=== PATIENT | female | born 1995 | race Caucasian/White ===

== ENCOUNTER 2018-05-13 08:12 | Inpatient (IN) ==
[2018-05-13 08:53] LABS: Baso # (Auto) 0.1 th/mm3 (0.0-0.2); Eos # (Auto) 0.4 th/mm3 (0.0-0.4); Eos % (Auto) 3.6 % (0.0-4.0); Hematocrit 42.6 % (35.0-46.0); Hemoglobin 14.3 gm/dL (11.6-15.3); Lymph # (Auto) 4.1 th/mm3 (1.0-4.8); Lymph % (Auto) 40.5 % (9.0-44.0); Mean Corpuscular HGB Conc 33.5 % (32.0-36.0); Mean Corpuscular Hemoglobin 30.3 pg (27.0-34.0); Mean Corpuscular Volume 90.4 fL (80.0-100.0); Mean Platelet Volume 7.5 fL (7.0-11.0); Mono # (Auto) 0.5 th/mm3 (0.0-0.9); Mono % (Auto) 4.9 % (0.0-8.0); Neut # (Auto) 5.1 th/mm3 (1.8-7.7); Platelet Count 247 th/mm3 (150-450); Red Blood Count 4.71 mil/mm3 (4.00-5.30); Red Cell Distribution Width 14.3 % (11.6-17.2); White Blood Count 10.1 th/mm3 (4.0-11.0)
[2018-05-13] MEDS ORDERED: Lidocaine 1% Inj 50 ML Vial INFILTRATN ONE (09:07)
[2018-05-13 09:12] LABS: Alanine Aminotransferase 37 U/L (10-53)
[2018-05-13 09:20] LABS: Alkaline Phosphatase 121 U/L (45-117); Total Protein 7.7 g/dL (6.4-8.2)
[2018-05-13 09:23] LABS: Anion Gap 13 meq/L (5-15); Aspartate Aminotransferase 51 U/L (15-37); Blood Urea Nitrogen 4 mg/dL (7-18); Calcium 8.4 mg/dL (8.5-10.1); Carbon Dioxide 20.6 meq/L (21.0-32.0); Chloride 103 meq/L (98-107); Glomerular Filtration Rate Greater Than 89 mL/min (>89); Glucose,Random 103 mg/dL (74-106); Magnesium 2.2 mg/dL (1.5-2.5); Potassium 3.7 meq/L (3.5-5.1); Sodium 137 meq/L (136-145)
[2018-05-13 09:24] LABS: Alcohol 139 mg/dL (0-5)
--- NOTE | 2018-05-13 10:36 | ED ---
HPI General Chief Complaint: Psychiatric Symptoms Stated Complaint: Psych eval / DBPD Time Seen by Provider: 05/13/18 08:37 Source: patient Mode of arrival: ambulatory Limitations: no limitations History of Present Illness HPI Narrative: 23-year-old female presents to the emergency department under Aranda act. According to the report the patient has prior history of Aranda acts and she is a chronic cutter and has previously gotten treatment for it. She intentionally cut herself on her right thigh causing an approximate 5 inch laceration. She also made a statement to a friend prior to cutting herself that she was going to take medication to harm herself. My examination the patient states "all of this is bulging it." She says that all this is a light. She reports cutting her right thigh this morning after a phone call she received that upset her, but she "did not mean to do it." Says she did it because it "takes away from emotional pain." She has history of self cutting. Says she has been almost 3 years without cutting. She denies suicidal or homicidal ideations. Denies suicidal plan. Denies auditory visual hallucinations. Reports marijuana use. Reports occasional alcohol use. Reports tobacco use. Up-to-date on tetanus vaccination. Symptoms are moderate to severe in severity. No known aggravating or relieving factors. No treatments tried. Onset unknown. Duration most likely chronic. Primary CARE providers Dr. Jackson. No psychiatrist. Allergies to prednisone. History of PCOS and hypothyroidism. History of depression. Has no other medical complaints. No other modifying factors or associated signs and symptoms. Related Data Previous Rx's Medication Instructions Recorded folic acid 1 mg PO DAILY #30 tab 05/14/18 thiamine HCl (vitamin B1) [Vitamin 100 mg PO DAILY #30 tab 05/14/18 B-1] Allergies Allergy/AdvReac Type Severity Reaction Status Date / Time No Known Allergies Uncoded 06/20/10 10:15 Review of Systems ROS: all other systems reviewed are negative PMFSH Family History Family History Mother Alcohol abuse Father Mood disorder Social History Social History Substance History: Active Abuse Second Hand Smoke Exposure: No Smoking Status: Current every day smoker Tobacco Type: Cigarettes How Often Do You Have a Drink Containing Alcohol: Monthly or less Immunization History Tetanus Immunization: <5 Years Exam Narrative Exam Narrative: GENERAL: Well-nourished, well-developed female patient , in no acute distress; tearful, upset SKIN: Warm and dry. Right lateral proximal thigh with approximately 10 cm laceration; bleeding controlled. Right lower extremity is supple and non-tense with 2+ pedal pulse and sensory intact and without erythema or edema. HEAD: Atraumatic. Normocephalic. EYES: Pupils equal and round. ENT: Mucosa pink and moist. NECK: Supple. Trachea midline. CARDIOVASCULAR: Regular rate and rhythm. No murmur appreciated. RESPIRATORY: No accessory muscle use. Clear to auscultation. Breath sounds equal bilaterally. GASTROINTESTINAL: Abdomen soft, non-tender, nondistended. Hepatic and splenic margins not palpable. Bowel sounds are active 4 quadrants. MUSCULOSKELETAL: No obvious deformities. No clubbing. No cyanosis. No edema. NEUROLOGICAL: Awake and alert. Oriented 3. No obvious cranial nerve deficits. Motor grossly within normal limits. Normal speech. Moves all extremities. 5/5 strength to all extremities. PSYCHIATRIC: No delusional thought processes. No hallucinations. Procedures Laceration Laceration 1: Site: lower extremity (right proximal lateral thigh) Side (If applicable): right Size (cm): 10 Description: linear Depth: simple, single layer Anesthetic used: lidocaine 1% Anesthesia technique:: local infiltration Amount (mL): 6 Pre-repair:: wound explored and irrigated extensively Skin layer closed with: doug Number of sutures:: 13 Course Initial Documented Vital Signs Temperature 98.1 F 05/13/18 08:25 Pulse Rate 121 H 05/13/18 08:25 Respiratory Rate 22 05/13/18 08:25 Blood Pressure 142/92 H 05/13/18 08:25 Pulse Oximetry 100 05/13/18 08:25 Last Documented Vital Signs Temperature 97.6 F 05/14/18 06:11 Pulse Rate 72 05/14/18 06:11 Respiratory Rate 18 05/14/18 06:11 Blood Pressure 102/57 L 05/14/18 06:11 Pulse Oximetry 97 05/14/18 06:[address] [facility] Narrative Medical decision making narrative: Patient presents under a Aranda act. Physical examination and vital signs are essentially unremarkable. Patient has 10 cm laceration to her right lateral thigh. See my procedure note for laceration repair. Psych screen has been ordered. If the laboratory results are unremarkable, the patient will be medically cleared for psychiatric evaluation and disposition. Medical Screen Exam Complete: Yes Emergency Medical Condition: Yes Differential Diagnosis Differential Diagnosis: Laceration, self cutting, suicidal ideation, depression , medical clearance for psychiatric evaluation Lab Data Result diagrams: 05/13/18 08:29 05/14/18 05:22 Lab Results 05/13/18 05/13/18 05/13/18 Range/Units 08:29 08:29 08:29 WBC 10.1 (4.0-11.0) th/mm3 RBC 4.71 (4.00-5.30) mil/mm3 Hgb 14.3 (11.6-15.3) gm/dL Hct 42.6 (35.0-46.0) % MCV 90.4 (80.0-100.0) fL MCH 30.3 (27.0-34.0) pg MCHC 33.5 (32.0-36.0) % RDW 14.3 (11.6-17.2) % Plt Count 247 (150-450) th/mm3 MPV 7.5 (7.0-11.0) fL Neut % (Auto) 50.0 (16.0-70.0) % Lymph % (Auto) 40.5 (9.0-44.0) % [place] % (Auto) 4.9 (0.0-8.0) % Eos % (Auto) 3.6 (0.0-4.0) % Baso % (Auto) 1.0 (0.0-2.0) % Neut # (Auto) 5.1 (1.8-7.7) th/mm3 Lymph # (Auto) 4.1 (1.0-4.8) th/mm3 [place] # (Auto) 0.5 (0.0-0.9) th/mm3 Eos # (Auto) 0.4 (0.0-0.4) th/mm3 Baso # (Auto) 0.1 (0.0-0.2) th/mm3 WBC Differential . Differential Comment Auto diff final Sodium 137 (136-145) meq/L Potassium 3.7 (3.5-5.1) meq/L Chloride 103 (98-107) meq/L Carbon Dioxide 20.6 L (21.0-32.0) meq/L Anion Gap 13 (5-15) meq/L BUN 4 L (7-18) mg/dL Creatinine 0.76 (0.50-1.00) mg/dL Estimated GFR Greater than 89 (>89) mL/min Random Glucose 103 (74-106) mg/dL Hemoglobin A1c (4.3-6.0) % Calcium 8.4 L (8.5-10.1) mg/dL Magnesium 2.2 (1.5-2.5) mg/dL Total Bilirubin 0.4 (0.2-1.0) mg/dL AST 51 H (15-37) U/L ALT 37 (10-53) U/L Alkaline Phosphatase 121 H (45-117) U/L Total Protein 7.7 (6.4-8.2) g/dL Albumin 4.0 (3.4-5.0) g/dL Triglycerides (42-150) mg/dL Cholesterol (120-200) mg/dL LDL Cholesterol, Calc (0-99) mg/dL HDL Cholesterol (40.0-60.0) mg/dL Cholesterol/HDL Ratio Ratio TSH 3.550 (0.358-3.740) uIU/mL Beta HCG, Quant (0-5) mIU/mL Salicylates Less than 1.7 L (2.8-20.0) mg/dL Urine Opiates Screen (Neg) Acetaminophen Less than 2.0 L (10.0-30.0) mcg/mL Ur Barbiturates Screen (Neg) Ur Amphetamines Screen (Neg) U Benzodiazepines Scrn (Neg) Urine Cocaine Screen (Neg) U Cannabinoids Screen (Neg) Serum Alcohol 139 H (0-5) mg/dL 05/13/18 05/14/18 05/14/18 Range/Units 15:36 05:22 05:22 WBC (4.0-11.0) th/mm3 RBC (4.00-5.30) mil/mm3 Hgb (11.6-15.3) gm/dL Hct (35.0-46.0) % MCV (80.0-100.0) fL MCH (27.0-34.0) pg MCHC (32.0-36.0) % RDW (11.6-17.2) % Plt Count (150-450) th/mm3 MPV (7.0-11.0) fL Neut % (Auto) (16.0-70.0) % Lymph % (Auto) (9.0-44.0) % [place] % (Auto) (0.0-8.0) % Eos % (Auto) (0.0-4.0) % Baso % (Auto) (0.0-2.0) % Neut # (Auto) (1.8-7.7) th/mm3 Lymph # (Auto) (1.0-4.8) th/mm3 [place] # (Auto) (0.0-0.9) th/mm3 Eos # (Auto) (0.0-0.4) th/mm3 Baso # (Auto) (0.0-0.2) th/mm3 WBC Differential Differential Comment Sodium 142 (136-145) meq/L Potassium 3.7 (3.5-5.1) meq/L Chloride 106 (98-107) meq/L Carbon Dioxide 27.9 (21.0-32.0) meq/L Anion Gap 8 (5-15) meq/L BUN 8 (7-18) mg/dL Creatinine 0.65 (0.50-1.00) mg/dL Estimated GFR Greater than 89 (>89) mL/min Random Glucose 91 (74-106) mg/dL Hemoglobin A1c 5.4 (4.3-6.0) % Calcium 8.3 L (8.5-10.1) mg/dL Magnesium (1.5-2.5) mg/dL Total Bilirubin (0.2-1.0) mg/dL AST (15-37) U/L ALT (10-53) U/L Alkaline Phosphatase (45-117) U/L Total Protein (6.4-8.2) g/dL Albumin (3.4-5.0) g/dL Triglycerides 120 (42-150) mg/dL Cholesterol 140 (120-200) mg/dL LDL Cholesterol, Calc 67 (0-99) mg/dL HDL Cholesterol 49.4 (40.0-60.0) mg/dL Cholesterol/HDL Ratio 2.83 Ratio TSH (0.358-3.740) uIU/mL Beta HCG, Quant (0-5) mIU/mL Salicylates (2.8-20.0) mg/dL Urine Opiates Screen Neg (Neg) Acetaminophen (10.0-30.0) mcg/mL Ur Barbiturates Screen Neg (Neg) Ur Amphetamines Screen Neg (Neg) U Benzodiazepines Scrn Pos H (Neg) Urine Cocaine Screen Neg (Neg) U Cannabinoids Screen Pos H (Neg) Serum Alcohol (0-5) mg/dL 05/14/18 Range/Units 05:22 WBC (4.0-11.0) th/mm3 RBC (4.00-5.30) mil/mm3 Hgb (11.6-15.3) gm/dL Hct (35.0-46.0) % MCV (80.0-100.0) fL MCH (27.0-34.0) pg MCHC (32.0-36.0) % RDW (11.6-17.2) % Plt Count (150-450) th/mm3 MPV (7.0-11.0) fL Neut % (Auto) (16.0-70.0) % Lymph % (Auto) (9.0-44.0) % [place] % (Auto) (0.0-8.0) % Eos % (Auto) (0.0-4.0) % Baso % (Auto) (0.0-2.0) % Neut # (Auto) (1.8-7.7) th/mm3 Lymph # (Auto) (1.0-4.8) th/mm3 [place] # (Auto) (0.0-0.9) th/mm3 Eos # (Auto) (0.0-0.4) th/mm3 Baso # (Auto) (0.0-0.2) th/mm3 WBC Differential Differential Comment Sodium (136-145) meq/L Potassium (3.5-5.1) meq/L Chloride (98-107) meq/L Carbon Dioxide (21.0-32.0) meq/L Anion Gap (5-15) meq/L BUN (7-18) mg/dL Creatinine (0.50-1.00) mg/dL Estimated GFR (>89) mL/min Random Glucose (74-106) mg/dL Hemoglobin A1c (4.3-6.0) % Calcium (8.5-10.1) mg/dL Magnesium (1.5-2.5) mg/dL Total Bilirubin (0.2-1.0) mg/dL AST (15-37) U/L ALT (10-53) U/L Alkaline Phosphatase (45-117) U/L Total Protein (6.4-8.2) g/dL Albumin (3.4-5.0) g/dL Triglycerides (42-150) mg/dL Cholesterol (120-200) mg/dL LDL Cholesterol, Calc (0-99) mg/dL HDL Cholesterol (40.0-60.0) mg/dL Cholesterol/HDL Ratio Ratio TSH (0.358-3.740) uIU/mL Beta HCG, Quant Less than 1 (0-5) mIU/mL Salicylates (2.8-20.0) mg/dL Urine Opiates Screen (Neg) Acetaminophen (10.0-30.0) mcg/mL Ur Barbiturates Screen (Neg) Ur Amphetamines Screen (Neg) U Benzodiazepines Scrn (Neg) Urine Cocaine Screen (Neg) U Cannabinoids Screen (Neg) Serum Alcohol (0-5) mg/dL Discharge Plan Discharge Disposition Patient Disposition: 30 Still Patient Discharge Condition Condition: Fair Discharge Order Discharge Orders: Discharge Order (Routine); Ordered 05/14/18 Ordered By: Rob Call Discharge Details Anticipated Discharge Date: 05/14/18 Diagnosis: Laceration of thigh, right, Deliberate self-cutting Physicians Team ED Provider: Elpidio Cook ED Midlevel Provider: Silvia Tai Primary Care Provider: Primary Care Soraya Garcia Attending Provider: Rob Call Status ED Status: Left Department Discharge Information Discharge Date/Time: 05/13/18 16:29
[2018-05-13] MEDS ORDERED: Aluminum/Magnesium/Simethacone Susp 30 ML UDC PO PRN (14:14)
[2018-05-13] MEDS ORDERED: Bisacodyl 10 MG Supp RECTAL PRN (14:14)
[2018-05-13] MEDS ORDERED: Haloperidol Inj 5 MG/ML Ampul IV.PUSH PRN (14:14)
[2018-05-13] MEDS ORDERED: LORazepam 1 MG Tablet PO PRN (14:14)
[2018-05-13 15:54] LABS: Amphetamine Screen,Urine Neg (Neg); Barbiturate Screen,Urine Neg (Neg); Cannabinoid Screen,Urine Pos (Neg); Cocaine Screen,Urine Neg (Neg)
[2018-05-13 15:56] LABS: Opiate Screen,Urine Neg (Neg)
[2018-05-13] MEDS: Senna/Docusate Sodium 8.6/50 MG Tablet PO SCH (21:35)
[2018-05-14 06:13] VITALS: BP 102/57; PULSE 72; RESP 18; TEMP 97.6; O2SAT 97
[2018-05-14 06:21] LABS: Anion Gap 8 meq/L (5-15); Blood Urea Nitrogen 8 mg/dL (7-18); Calcium 8.3 mg/dL (8.5-10.1); Carbon Dioxide 27.9 meq/L (21.0-32.0); Chloride 106 meq/L (98-107); Glomerular Filtration Rate Greater Than 89 mL/min (>89); Glucose,Random 91 mg/dL (74-106); Potassium 3.7 meq/L (3.5-5.1); Sodium 142 meq/L (136-145)
[2018-05-14 06:22] LABS: Cholesterol 140 mg/dL (120-200); Triglycerides 120 mg/dL (42-150)
[2018-05-14 06:25] LABS: Chol/HDL Ratio 2.83 Ratio; HDL Cholesterol 49.4 mg/dL (40.0-60.0); LDL Cholesterol,Calculated 67 mg/dL (0-99)
[2018-05-14] MEDS: Senna/Docusate Sodium 8.6/50 MG Tablet PO SCH (08:32)
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
[2018-05-14 17:14] LABS: Hemoglobin A1c 5.4 % (4.3-6.0)
== END 2018-05-14 13:30 | disposition home or self-care (01) ==
LOC: NEPD 08:12 → NEDA 14:46 → H270 16:25 → NEDA 16:29
PROVIDERS: ADMIT Psychiatry & Neurology Psychiatry; ATTEND Psychiatry & Neurology Psychiatry